=== PATIENT | female | born 1960 | race Caucasian/White ===

== ENCOUNTER → 2016-08-03 | Outpatient (REF) | payer BC | LOC: M SFHCPLAZ 17:09 | PROVIDERS: ATTEND Dermatology | DX: D22.61 Melanocytic nevi of right upper limb, including shoulder (principal) ==

== ENCOUNTER → 2016-09-02 | Outpatient (REF) | payer BC | LOC: M SFHCWAGY 10:12 | PROVIDERS: ATTEND Nurse Practitioner Family | DX: N95.0 Postmenopausal bleeding (principal) ==

== ENCOUNTER → 2020-11-18 | Outpatient (REF) | payer BC | LOC: M LAB REF 13:46 | PROVIDERS: ATTEND Physician Assistant | DX: L82.1 Other seborrheic keratosis (principal) ==

== ENCOUNTER → 2020-11-25 | Outpatient (CLI) | payer BC ==
[~2020-11-25] MED LIST: ATOR1TAB19 PO; CALC1CAP31 PO; FAMO20TA PO; HYDR-3490 PO; MAGN400C PO; POTA1TAB14 PO; THERTAB52 PO
--- NOTE | 2020-11-25 15:07 | REP ---
INDICATION: RT SUBMANDIBULAR MASS. Patient is referred for ultrasound-guided fine needle aspiration right neck lesion. COMPARISON: Comparison is made with sonographic imaging from [facility] dated October 19, 2020. TECHNIQUE: Bilateral submandibular and submental and anterior neck sonography. Sonography is performed in my presence. FINDINGS: Scanning where the patient feels a palpable abnormality and vague discomfort, reveals a sonographically normal right submandibular gland. This is compared to the contralateral left submandibular gland and they are completely symmetric and both glands are homogeneous. No mass lesion is seen in either submandibular gland. There are 2 or 3 submental lymph nodes medial to the submandibular glands which have normal cortical margins measuring less than 3 mm. No evidence of adenopathy. No evidence of submandibular ductal dilation on either side. After careful imaging and a detailed review of these findings with the patient, it was jointly decided not to proceed with fine-needle aspiration since there was no sonographically identifiable abnormal target. Clinical follow-up is advised. Consideration could be given to soft tissue neck CT study for more global appraisal of neck soft tissues. IMPRESSION: Bilaterally normal submandibular glands. The palpable area that the patient feels corresponds to a sonographically normal right submandibular gland. There is no evidence of adenopathy or mass. The ultrasound-guided FNA was therefore deferred. Clinical follow-up and/or soft tissue neck CT study suggested. <Electronically signed by Jovanni Mcguire > 11/25/20 [id number]
== END ==
LOC: M IRPRO 13:54
PROVIDERS: ATTEND Otolaryngology
DX: R22.1 Localized swelling, mass and lump, neck (principal)

== ENCOUNTER → 2021-11-24 | Outpatient (REF) | payer BC | LOC: M SFHCDERM 13:37 | PROVIDERS: ATTEND Physician Assistant | DX: C44.719 Basal cell carcinoma of skin of left lower limb, including hip (principal) ==

== ENCOUNTER → 2021-12-13 | Outpatient (REF) ==
[2021-12-13 17:16] LABS: HEP C VIRUS AB INDEX SOURCE PT < 0.0 INDEX (0.0-0.8); HEPATITIS B SURFACE ANTIGEN NEGATIVE (NEGATIVE)
[2021-12-13 17:25] LABS: HIV SCREEN CENTAUR SOURCE NEGATIVE (NEGATIVE)
== END ==
LOC: M LAB 15:07
PROVIDERS: ATTEND Physician Assistant
DX: Z77.21 Contact with and (suspected) exposure to potentially hazardous body fluids (principal)